=== PATIENT | female | born 2000 | race Caucasian/White ===

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

== ENCOUNTER 2023-01-05 23:57 | Emergency (ER) | payer OTHER ==
[~2023-01-05] VITALS: Ht 167.6 cm; Wt 68.0 kg
[2023-01-06 00:08] VITALS: BP 134/89
--- NOTE | 2023-01-06 00:30 | NUR ---
Pt to bed 11
--- NOTE | 2023-01-06 00:32 | NUR ---
Patient resting in bed, A/Ox4, chest rise and fall symmetrical, no s/s of distress, on monitor.
[2023-01-06] MEDS ORDERED: ALUMINUM HYD/MAG/SIMETHICONE 30 ML UDC PO ONE (00:35)
[2023-01-06] MEDS ORDERED: FAMOTIDINE 20 MG TAB PO ONE (00:35)
--- NOTE | 2023-01-06 00:35 | NUR ---
ER physician assessing patient at bedside.
--- NOTE | 2023-01-06 01:00 | NUR ---
Patient resting in bed, A/Ox4, chest rise and fall symmetrical, no s/s of distress, on monitor.
--- NOTE | 2023-01-06 01:14 | NUR ---
Patient resting in bed, A/Ox4, chest rise and fall symmetrical, no c/o pain or s/s of distress, on monitor.
[2023-01-06] MEDS ORDERED: FAMO-92 PO (01:28)
[2023-01-06] MEDS ORDERED: ALUM355S59 PO (01:28)
[2023-01-06 01:47] VITALS: BP 127/85
== END 2023-01-06 01:47 | disposition home or self-care (01) ==
LOC: MED 23:57
DX: K29.70 Gastritis, unspecified, without bleeding (principal); Z79.899 Other long term (current) drug therapy
CPT/HCPCS: 99283

== ENCOUNTER 2023-01-13 11:05 | Emergency (ER) | payer OTHER ==
[~2023-01-13] VITALS: Ht 165.1 cm; Wt 79.0 kg
[~2023-01-13 11:05] MED LIST: ALUM355S59 PO; FAMO-92 PO
[2023-01-13 11:07] VITALS: BP 113/69
[2023-01-13 12:12] LABS: BASOPHILS % (AUTO) 0.2 % (0.0-2.0); EOSINOPHILS # (AUTO) 0.3 K/uL (0-0.4); EOSINOPHILS % (AUTO) 2.9 % (0.0-4.0); HEMATOCRIT 37.4 % (36-48); HEMOGLOBIN 11.9 g/dL (12.0-16.0); LYMPHOCYTES # (AUTO) 1.5 K/uL (2.5-16.5); LYMPHOCYTES % (AUTO) 14.8 % (20.5-51.1); MEAN CORPUSCULAR HEMOGLOBIN 21 pg (27-31); MEAN CORPUSCULAR HGB CONC 32 g/dL (33-37); MEAN CORPUSCULAR VOLUME 66.2 fL (80-94); MONOCYTES # (AUTO) 0.9 K/uL (0.8-1.0); MONOCYTES % (AUTO) 9.2 % (1.7-9.3); NEUTROPHILS # (AUTO) 7.3 K/uL (1.8-7.7); NEUTROPHILS % (AUTO) 72.9 % (42.2-75.2); PLATELET COUNT (AUTO) 352 K/uL (140-450); RED BLOOD CELL COUNT(AUTO) 5.65 MIL/uL (4.20-5.40); RED CELL DISTRIBUTION WIDTH 16.6 % (11.6-13.7)
[2023-01-13 12:24] LABS: ALBUMIN 3.9 g/dL (3.4-5.0); ANION GAP 12.3 (8-16); CARBON DIOXIDE 27.6 mmol/L (21-32); CREATININE 0.8 mg/dL (0.6-1.3); POTASSIUM 3.9 mmol/L (3.5-5.1); TOTAL BILIRUBIN 0.8 mg/dL (0.0-1.0)
[2023-01-13] MEDS ORDERED: ONDANSETRON 4 MG ODT PO ONE (12:30)
[2023-01-13] MEDS ORDERED: DICYCLOMINE HCL LIQUID 20 MG, ALUMINUM HYD/MAG/SIMETHICONE 30 ML, LIDOCAINE VISCOUS 2% ... PO ONE ×3 (12:30)
[2023-01-13] MEDS ORDERED: DICYCLOMINE HCL LIQUID 10 MG/5 ML UDC ONE (12:36)
[2023-01-13] MEDS ORDERED: ALUMINUM HYD/MAG/SIMETHICONE 30 ML UDC ONE (12:36)
[2023-01-13 13:01] LABS: APPEARANCE,URINE CLEAR (CLEAR); BILIRUBIN,URINE 1+ (NEGATIVE); BLOOD, URINE NEGATIVE (NEGATIVE); COLOR,URINE YELLOW (YELLOW); LEUKOCYTE ESTERASE ,URINE NEGATIVE (NEGATIVE); NITRITE, URINE NEGATIVE (NEGATIVE); UGLUCOSE NEGATIVE (NEGATIVE)
[2023-01-13] MEDS ORDERED: FAMO-90 PO (13:32)
[2023-01-13] MEDS ORDERED: IMO2 PO (13:32)
[2023-01-13] MEDS ORDERED: ONDA-188 PO (13:32)
--- NOTE | 2023-01-13 13:53 | NUR ---
CALLED TO DC, NOT FOUND IN LOBBY OR PARKING LOT. LOPERAMIDE, PEPCID AND ZOFRAN ODT SENT TO [facility] IN [address]
== END 2023-01-13 13:53 | disposition home or self-care (01) ==
LOC: MED 11:05
DX: R10.13 Epigastric pain (principal); R11.10 Vomiting, unspecified; R19.7 Diarrhea, unspecified; Z79.899 Other long term (current) drug therapy
CPT/HCPCS: 36415; 80053; 81003; 81025; 83690; 84703; 85025; 99283; Q0162

== ENCOUNTER 2023-01-27 03:18 | Inpatient (IN) | payer OTHER ==
[~2023-01-27] VITALS: Ht 165.1 cm; Wt 77.1 kg
[~2023-01-27 03:18] MED LIST changes: +FAMO-90 PO; +IMO2 PO; +ONDA-188 PO
[2023-01-27 03:26] VITALS: BP 120/77; PULSE 99; RESP 16; TEMP 97.6; O2SAT 100
--- NOTE | 2023-01-27 03:32 | NUR ---
TO LOBBY FOLLOWING TRIAGE AFTER OBTAINING UA
--- NOTE | 2023-01-27 04:31 | NUR ---
PT TO BED 05
[2023-01-27 04:33] LABS: APPEARANCE,URINE CLEAR (CLEAR); BILIRUBIN,URINE NEGATIVE (NEGATIVE); BLOOD, URINE NEGATIVE (NEGATIVE); COLOR,URINE YELLOW (YELLOW); LEUKOCYTE ESTERASE ,URINE NEGATIVE (NEGATIVE); NITRITE, URINE NEGATIVE (NEGATIVE); UGLUCOSE NEGATIVE (NEGATIVE)
--- NOTE | 2023-01-27 04:39 | NUR ---
22 Y/O F from home presents with abdominal stabbing pain / x2days, pt deneis any nvd, headaches or radiating pain. pt A&Ox4, skin intact, respirations even and unlabored, ambulatory without assistance. pmh-pt denies NK
[2023-01-27] MEDS ORDERED: KETOROLAC 30 MG/ML VIAL IVP ONE (05:05)
[2023-01-27 05:23] LABS: BASOPHILS % (AUTO) 0.3 % (0.0-2.0); EOSINOPHILS # (AUTO) 0.2 K/uL (0-0.4); EOSINOPHILS % (AUTO) 1.9 % (0.0-4.0); HEMATOCRIT 35.8 % (36-48); HEMOGLOBIN 11.1 g/dL (12.0-16.0); LYMPHOCYTES # (AUTO) 2.2 K/uL (2.5-16.5); LYMPHOCYTES % (AUTO) 18.2 % (20.5-51.1); MEAN CORPUSCULAR HEMOGLOBIN 20 pg (27-31); MEAN CORPUSCULAR HGB CONC 31 g/dL (33-37); MONOCYTES # (AUTO) 0.9 K/uL (0.8-1.0); MONOCYTES % (AUTO) 7.5 % (1.7-9.3); NEUTROPHILS # (AUTO) 8.6 K/uL (1.8-7.7); NEUTROPHILS % (AUTO) 72.1 % (42.2-75.2); PLATELET COUNT (AUTO) 325 K/uL (140-450); RED CELL DISTRIBUTION WIDTH 16.7 % (11.6-13.7)
[2023-01-27 05:43] LABS: ALBUMIN 3.8 g/dL (3.4-5.0); CARBON DIOXIDE 27.7 mmol/L (21-32); CREATININE 0.6 mg/dL (0.6-1.3); POTASSIUM 3.7 mmol/L (3.5-5.1); TOTAL BILIRUBIN 0.4 mg/dL (0.0-1.0)
--- NOTE | 2023-01-27 07:18 | NUR ---
Pt report given to Simona HAWTHORNE. Transfer of care at this time.
--- NOTE | 2023-01-27 07:20 | NUR ---
report received from felix
--- NOTE | 2023-01-27 07:45 | NUR ---
22YO F PRESENTS W/NON-RADIATING RUQ PAIN X 2 DAYS, 05/06, DENIES BERNAL,N,V,D,C, DIZZINESS, CHANGES IN DIET, A&OX4, SKIN INTACT, SAFETY MAINTAINED. NAD HX: DENIES NKA
[2023-01-27] MEDS ORDERED: NACL 0.9% 1,000 ML IV ONE (07:55)
[2023-01-27] MEDS ORDERED: PIPERACILLIN/TAZOBACTAM 3.375 GM in DEXTROSE 5% 50 ML IV ONE (07:55)
[2023-01-27] MEDS ORDERED: ONDANSETRON 4 MG/2 ML VIAL IVP ONE (07:55)
--- NOTE | 2023-01-27 08:00 | NUR ---
pt swabbed for covid(checo). walked to lab
[2023-01-27] MEDS ORDERED: PIPERACILLIN/TAZOBACTAM 3.375 GM VIAL IV ONE (08:24)
[2023-01-27] MEDS: MORPHINE SULFATE 2 MG/ML SYR IVP PRN ×6 (08:35→18:13)
[2023-01-27] MEDS ORDERED: ONDANSETRON 4 MG/2 ML VIAL IVP PRN (08:55)
[2023-01-27] MEDS ORDERED: LORazepam 2 MG/ML VIAL IVP PRN (08:55)
[2023-01-27] MEDS ORDERED: ACETAMINOPHEN 325 MG TAB PO PRN (08:55)
[2023-01-27] MEDS: NACL 0.9% 1,000 ML IV SCH ×2 (09:31→17:07)
--- NOTE | 2023-01-27 10:01 | NUR ---
Patient will be admitted to care of [facility]. Admited to MED/SURG. Will go to room 104B. Belongings list completed. Report to BRITTANIE PRESTON.
[2023-01-27 10:05] VITALS: BP 116/70; PULSE 86; RESP 12; TEMP 97.3; O2SAT 99
--- NOTE | 2023-01-27 13:41 | NUR ---
DR ALVARADO AT BEDSIDE, ASSESSING PT. STATES PT PAIN IS NOT 7/10 DUE TO NOT CRYING, PT WAS MEDICATED AT 1309 PER MD ORDER FOR REPORT OF 7/10. DR BALLARD CLEAR LIQUID DIET AND SEE HOW PT IS TOLERATING.
[2023-01-27] MEDS ORDERED: PANTOPRAZOLE 40 MG INJ VIAL IVP SCH (15:01)
[2023-01-27] MEDS: PIPERACILLIN/TAZOBACTAM 3.375 GM in DEXTROSE 5% 50 ML IV SCH ×2 (15:48→20:22)
[2023-01-27 16:00] VITALS: BP 105/55; PULSE 72; RESP 12; TEMP 97.8; O2SAT 99
--- NOTE | 2023-01-27 19:05 | NUR ---
RECEIVED PT FROM MORNING SHIFT NURSE. PT IS AOX4, AMBULATORY, ABLE TO VERBALIZE NEEDS AND ABLE TO FOLLOW COMMANDS. PT IS ON CLEAR LIQUID DIET AND ON ROOM AIR. PT HAS IV ON LEFT AC GAUGE 20 RUNNING WITH NS AT 60ML/HR. PT SKIN IS INTACT. NO COMPLAIN OF PAIN AT THIS TIME. NO S/S OF RESPIRATORY DISTRESS NOTED. ALL SAFETY MEASURES IMPLEMENTED. BED IN LOW POSITION, BED WHEELS ON LOCK AND CALL LIGHT WITHIN REACH.
[2023-01-27 20:00] VITALS: PULSE 94; RESP 18; O2SAT 99
--- NOTE | 2023-01-27 20:22 | NUR ---
SCHEDULED AND PRESCRIBED MEDICATION WAS GIVEN TO PT PER MD ORDER. ALL SAFETY MEASURES IMPLEMENTED. BED IN LOW POSITION, BED WHEELS ON LOCK AND CALL LIGHT WITHIN REACH.
--- NOTE | 2023-01-27 22:00 | NUR ---
PT WAS GIVEN WARM BLANKET PER PT REQUEST. PT DENIES PAIN AND NO S/S OF RESPIRATORY DISTRESS NOTED. ALL SAFETY MEASURES IMPLEMENTED. BED IN LOW POSITION, BED WHEELS ON LOCK AND CALL LIGHT WITHIN REACH.
[2023-01-28] VITALS: BP 129/57; PULSE 94; RESP 18; TEMP 97.6; O2SAT 99
--- NOTE | 2023-01-28 | NUR ---
PT IS ON SLEEP. CHEST RISE AND FALL SYMMETRICALLY NOTED. RESPIRATION IS EVEN AND UNLABORED. ALL SAFETY MEASURES IMPLEMENTED. BED IN LOW POSITION, BED WHEELS ON LOCK AND CALL LIGHT WITHIN REACH.
[2023-01-28] MEDS: NACL 0.9% 1,000 ML IV SCH ×2 (01:01→09:35)
--- NOTE | 2023-01-28 02:00 | NUR ---
CHECKED THE PT STILL ON SLEEP. CHEST RISE AND FALL SYMMETRICALLY NOTED. RESPIRATION IS EVEN AND UNLABORED. ALL SAFETY MEASURES IMPLEMENTED. BED IN LOW POSITION, BED WHEELS ON LOCK AND CALL LIGHT WITHIN REACH.
[2023-01-28] MEDS: PIPERACILLIN/TAZOBACTAM 3.375 GM in DEXTROSE 5% 50 ML IV SCH ×2 (04:57→12:26)
[2023-01-28 06:51] LABS: BASOPHILS % (AUTO) 0.3 % (0.0-2.0); EOSINOPHILS # (AUTO) 0.2 K/uL (0-0.4); EOSINOPHILS % (AUTO) 3.2 % (0.0-4.0); HEMATOCRIT 31.2 % (36-48); HEMOGLOBIN 9.7 g/dL (12.0-16.0); LYMPHOCYTES % (AUTO) 26.7 % (20.5-51.1); MEAN CORPUSCULAR HEMOGLOBIN 21 pg (27-31); MEAN CORPUSCULAR HGB CONC 31 g/dL (33-37); MEAN CORPUSCULAR VOLUME 65.7 fL (80-94); MONOCYTES # (AUTO) 0.8 K/uL (0.8-1.0); MONOCYTES % (AUTO) 11.1 % (1.7-9.3); NEUTROPHILS # (AUTO) 4.4 K/uL (1.8-7.7); NEUTROPHILS % (AUTO) 58.7 % (42.2-75.2); PLATELET COUNT (AUTO) 290 K/uL (140-450); RED BLOOD CELL COUNT(AUTO) 4.74 MIL/uL (4.20-5.40); RED CELL DISTRIBUTION WIDTH 16.6 % (11.6-13.7); WHITE BLOOD COUNT (AUTO) 7.5 K/uL (4.8-10.8)
[2023-01-28 07:00] LABS: ALBUMIN 2.9 g/dL (3.4-5.0); ANION GAP 10.9 (8-16); CARBON DIOXIDE 26.9 mmol/L (21-32); CREATININE 0.7 mg/dL (0.6-1.3); MAGNESIUM 1.8 mg/dL (1.8-2.4); POTASSIUM 3.8 mmol/L (3.5-5.1); TOTAL BILIRUBIN 0.8 mg/dL (0.0-1.0)
--- NOTE | 2023-01-28 07:10 | NUR ---
PT IS STABLE. ENDORSED PT TO MORNING SHIFT NURSE FOR CONTINUITY OF CARE.
--- NOTE | 2023-01-28 07:30 | NUR ---
GOT REPORT FROM , THE NIGHT NURSE PT IS AWAKE , DISCUSSED POC.[id number]
[2023-01-28 08:00] VITALS: BP 112/47; PULSE 89; RESP 17; O2SAT 99
[2023-01-28] MEDS ORDERED: PANTOPRAZOLE 40 MG INJ VIAL IVP SCH (09:00)
--- NOTE | 2023-01-28 09:58 | NUR ---
PATIENT HAS BEEN SCREENED AND CATEGORIZED LOW NUTRITION RISK. PATIENT WILL BE SEEN WITHIN 7 DAYS OF ADMISSION. 01/27/23-02/03/[address]
--- NOTE | 2023-01-28 15:34 | NUR ---
PT DISCHARGED, DISCHARGE INSTRUCTION GIVEN , ID AND IV REMOVED PT LEFT UNIT WALKING WITHOUT ANY DISCOMFORT.[id number]
--- NOTE | 2023-02-05 16:08 | NUR ---
CALLED [facility] LOCATED AT [address] [address]. AND SPOKE WITH VERONICA WHO WAS ABLE TO HELP ME SCHEDULE A FOLLOW UP APPOINTMENT FOR 01/31/2023 AT 1430. CALLED [employer] AND INFORMED HER OF THE ABOVE INFORMATION.
== END 2023-01-28 15:49 | disposition home or self-care (01) ==
LOC: MED 03:18 → MTU 08:56
PROVIDERS: ADMIT Hospitalist; ATTEND Hospitalist
DX: K80.00 Calculus of gallbladder with acute cholecystitis without obstruction (principal); R65.10 Systemic inflammatory response syndrome (SIRS) of non-infectious origin without acute organ dysfunction; E66.9 Obesity, unspecified; Z20.822 Contact with and (suspected) exposure to COVID-19; Z68.28 Body mass index [BMI] 28.0-28.9, adult
CPT/HCPCS: 36415; 76705; 80053; 81003; 83605; 83690; 83735; 85025; 87040; 87081; 96374; 96375; 99285; C9113; J1885; J2270; J2405; J2543; J7060; Q0092

== ENCOUNTER 2023-02-01 12:46 | Emergency (ER) | payer OTHER ==
[~2023-02-01] VITALS: Ht 165.1 cm; Wt 78.9 kg
[2023-02-01 12:53] VITALS: BP 129/83
[2023-02-01 14:01] LABS: BASOPHILS % (AUTO) 0.6 % (0.0-2.0); EOSINOPHILS # (AUTO) 0.1 K/uL (0-0.4); EOSINOPHILS % (AUTO) 1.3 % (0.0-4.0); HEMATOCRIT 36.2 % (36-48); HEMOGLOBIN 11.4 g/dL (12.0-16.0); LYMPHOCYTES # (AUTO) 1.9 K/uL (2.5-16.5); LYMPHOCYTES % (AUTO) 24.1 % (20.5-51.1); MEAN CORPUSCULAR HEMOGLOBIN 20 pg (27-31); MEAN CORPUSCULAR HGB CONC 32 g/dL (33-37); MEAN CORPUSCULAR VOLUME 64.8 fL (80-94); MONOCYTES # (AUTO) 0.6 K/uL (0.8-1.0); MONOCYTES % (AUTO) 7.9 % (1.7-9.3); NEUTROPHILS # (AUTO) 5.2 K/uL (1.8-7.7); NEUTROPHILS % (AUTO) 66.1 % (42.2-75.2); PLATELET COUNT (AUTO) 367 K/uL (140-450); RED CELL DISTRIBUTION WIDTH 16.6 % (11.6-13.7); WHITE BLOOD COUNT (AUTO) 7.9 K/uL (4.8-10.8)
[2023-02-01 14:21] LABS: APPEARANCE,URINE CLEAR (CLEAR); BILIRUBIN,URINE NEGATIVE (NEGATIVE); BLOOD, URINE NEGATIVE (NEGATIVE); COLOR,URINE YELLOW (YELLOW); LEUKOCYTE ESTERASE ,URINE NEGATIVE (NEGATIVE); NITRITE, URINE NEGATIVE (NEGATIVE); UGLUCOSE NEGATIVE (NEGATIVE)
[2023-02-01 14:27] LABS: ALBUMIN 3.9 g/dL (3.4-5.0); ANION GAP 12.7 (8-16); CARBON DIOXIDE 26.5 mmol/L (21-32); CREATININE 0.6 mg/dL (0.6-1.3); POTASSIUM 4.2 mmol/L (3.5-5.1); TOTAL BILIRUBIN 0.6 mg/dL (0.0-1.0)
[2023-02-01] MEDS ORDERED: KETOROLAC 30 MG/ML VIAL IM ONE (15:45)
[2023-02-01] MEDS ORDERED: ONDANSETRON 4 MG ODT PO ONE (16:15)
[2023-02-01] MEDS ORDERED: ACET-10509 PO (16:46)
[2023-02-01] MEDS ORDERED: IBUP-2213 PO (16:46)
--- NOTE | 2023-02-01 18:06 | NUR ---
RUQ PAIN RAD TO HER BACK ASSO WITH NAUSEA NO DIARRHEA NO FEVER
[2023-02-01 18:07] VITALS: BP 118/74
--- NOTE | 2023-02-01 18:07 | NUR ---
Patient discharged with v/s stable. Written and verbal after care instructions given. Patient alert, oriented and verbalized understanding of instructions. Ambulatory with steady gait. All questions addressed prior to discharge. ID band removed. Patient advised to follow up with PMD. Rx of IBUPROFEN AND TYLENOL given. Opportunity to ask questions provided and answered.
== END 2023-02-01 18:07 | disposition home or self-care (01) ==
LOC: MED 12:46
DX: K80.50 Calculus of bile duct without cholangitis or cholecystitis without obstruction (principal); K80.20 Calculus of gallbladder without cholecystitis without obstruction; Z79.899 Other long term (current) drug therapy; Z79.1 Long term (current) use of non-steroidal anti-inflammatories (NSAID)
CPT/HCPCS: 36415; 76705; 80053; 81003; 81025; 83690; 85025; 96372; 99285; J1885; Q0092; Q0162

== ENCOUNTER 2024-05-09 15:32 | Emergency (ER) | payer OTHER ==
[~2024-05-09] VITALS: Ht 172.7 cm; Wt 94.8 kg
[~2024-05-09 15:32] MED LIST changes: +ACET500T99 PO; -ALUM355S59 PO; -FAMO-90 PO; -FAMO-92 PO; +IBUP-2213 PO; -IMO2 PO; -ONDA-188 PO
[2024-05-09 16:29] VITALS: BP 150/90; PULSE 79; RESP 18; TEMP 97.7; O2SAT 100
[2024-05-09] MEDS ORDERED: IBUP-1842 PO (17:17)
[2024-05-09] MEDS ORDERED: HYD1C TP (17:17)
[2024-05-09] MEDS ORDERED: CEPH-588 PO (17:17)
== END 2024-05-09 17:29 | disposition home or self-care (01) ==
LOC: MED 15:32
DX: L03.012 Cellulitis of left finger (principal); Z79.1 Long term (current) use of non-steroidal anti-inflammatories (NSAID); Z79.899 Other long term (current) drug therapy
CPT/HCPCS: 99283